=== PATIENT | female | born 1970 | race Caucasian/White ===

== ENCOUNTER 2019-01-01 08:56 | Emergency (ER) | payer BC ==
--- NOTE | 2019-01-01 09:39 | EDM.PDOC ---
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 Patient has a past medical history of diabetes mellitus and hypertension. She reports that she has been having on and off yeast infections since starting new diabetic medication in July. Patient reports that she has been treated twice for a yeast infection over the past couple of months. She reports doing a online telemedicine consultation yesterday and was given a dose of Diflucan, however, feels that her symptoms have worsened today. Patient reports that she has not been sexually active lately because of the ongoing yeast infections, however, does only have one partner. Patient reports having an IUD contraceptive device. Review of systems: As per history of present illness and below otherwise all systems reviewed and negative. Past medical history: As per history of present illness and as reviewed below otherwise noncontributory. Surgical history: As per history of present illness and as reviewed below otherwise noncontributory. Social history: No reported history of drug or alcohol abuse. Family history: As per history of present illness and as reviewed below otherwise noncontributory. Physical exam: HEENT: Atraumatic, normocephalic, pupils reactive, negative for conjunctival pallor or scleral icterus, mucous membranes moist, throat clear, neck supple, nontender, trachea midline. Lungs: Clear to auscultation, breath sounds equal bilaterally. Heart: S1S2, regular Abdomen: Soft, nondistended, nontender, normal bowel sounds. Pelvis: Stable nontender. Genitourinary: whitish plaques and white discharge on external genitalia. thick whitish discharge around cervix. Rectal: Deferred. Extremities: Atraumatic. Neurovascular unremarkable. Neuro: Awake, alert, oriented. Cranial nerves II through XII unremarkable. Exam nonfocal. Diagnostics: UA, Trichomonas gonorrhea georgiana DNA probe, GC chlamydia swab, Accu-Chek Therapeutics: Regular Insulin 10 units. Impression: 1. Urinary tract infection. 2. Vulvovaginal candidiasis. 3. Type 2 diabetes mellitus, uncontrolled. Plan: Prescription for Cefdinir provided. Counselled patient on the importance of controlling her diabetes, glucose management and taking her medications as prescribed. Recommended follow-up with her primary care provider in 2-4 days as she is returning to [place] tomorrow. For vulvovaginal candidiasis, patient may require a second dose of Diflucan after 72 hours and this was discussed with the patient. Definitive disposition and diagnosis as appropriate pending reevaluation and review of above. Vaginal Pain Score (Numeric/FACES): 4 - Related Data Allergies Allergy/AdvReac Type Severity Reaction Status Date / Time No Known Allergies Allergy Verified 01/01/19 09:16 Home Meds: Home Meds Cefdinir [Omnicef] 300 mg PO Q12H 7 Days #14 cap 01/01/19 [Rx] Empagliflozin [Jardiance] 10 mg PO DAILY 01/01/19 [History] Venlafaxine [Effexor] 75 mg PO DAILY 01/01/19 [History] glipiZIDE [Glucotrol XL] 2.5 mg PO DAILY 01/01/19 [History] hydroCHLOROthiazide [Hydrochlorothiazide] 12.5 mg PO DAILY 01/01/19 [History] metFORMIN [Glucophage XR] 1,000 mg PO BIDMEALS 01/01/19 [History] Past Medical History Cardiovascular History: Reports: Hypertension Psychiatric History: Reports: Anxiety Endocrine/Metabolic History: Reports: Diabetes, Type II - Infectious Disease History Infectious Disease History: Reports: None Social & Family History - Family History Family Medical History: Noncontributory - Tobacco Use Smoking Status *Q: Never Smoker Second Hand Smoke Exposure: No - Caffeine Use Caffeine Use: Reports: Coffee - Recreational Drug Use Recreational Drug Use: No ED ROS GENERAL - Review of Systems Review Of Systems: ROS reveals no pertinent complaints other than HPI. ED EXAM, RENAL/ - Physical Exam Exam: See Below Course - Vital Signs Last Recorded V/S: Last Vital Signs Temp 96.2 F 01/01/19 09:18 Pulse 110 H 01/01/19 09:18 Resp 18 01/01/19 09:18 BP 151/96 H 01/01/19 09:18 Pulse Ox 95 01/01/19 09:18 - Orders/Labs/Meds Orders: Active Orders 24 hr Category Date Time Status Accu Check [Blood Glucose Check, Bedside] [RC] ONETIME Care 01/01/19 09:32 Active CHLAMYDIA AND GONORRHEA BY [facility] Stat Lab 01/01/19 09:41 Received Labs: Laboratory Tests 01/01/19 01/01/19 01/01/19 Range/Units 09:43 10:16 10:47 ABG pH 7.424 (7.35-7.45) ABG pCO2 39 (35-45) mmHG ABG pO2 83 (75-100) mmHG ABG HCO3 26 (22-26) mEq/L ABG Total CO2 22.7 ABG Base Excess 1.1 (-2.0-2.0) POC Glucose 380 H (60-110) mg/dL Urine Color Urine Appearance Urine pH (5.0-8.0) Ur Specific [place] (1.001-1.035) Urine Protein (NEGATIVE) mg/dL Urine Glucose (UA) (NEGATIVE) mg/dL Urine Ketones (NEGATIVE) mg/dL Urine Occult Blood (NEGATIVE) Urine Nitrite (NEGATIVE) Urine Bilirubin (NEGATIVE) Urine Urobilinogen (<2.0) EU/dL Ur Leukocyte Esterase (NEGATIVE) Urine RBC (0-2/HPF) Urine WBC (0-5/HPF) Ur Epithelial Cells (NONE-FEW) Urine Bacteria (NEGATIVE) Urine HCG, Qual (NEGATIVE) Georgiana species DNA NEGATIVE (NEGATIVE) Gardnerella DNA Probe NEGATIVE (NEGATIVE) Trichomonas DNA Probe NEGATIVE (NEGATIVE) 01/01/19 01/01/19 Range/Units 10:49 10:49 ABG pH (7.35-7.45) ABG pCO2 (35-45) mmHG ABG pO2 (75-100) mmHG ABG HCO3 (22-26) mEq/L ABG Total CO2 ABG Base Excess (-2.0-2.0) POC Glucose (60-110) mg/dL Urine Color YELLOW Urine Appearance SLT CLOUDY Urine pH 6.5 (5.0-8.0) Ur Specific [place] <= 1.005 (1.001-1.035) Urine Protein NEGATIVE (NEGATIVE) mg/dL Urine Glucose (UA) >=1000 (NEGATIVE) mg/dL Urine Ketones NEGATIVE (NEGATIVE) mg/dL Urine Occult Blood SMALL H (NEGATIVE) Urine Nitrite NEGATIVE (NEGATIVE) Urine Bilirubin NEGATIVE (NEGATIVE) Urine Urobilinogen 0.2 (<2.0) EU/dL Ur Leukocyte Esterase NEGATIVE (NEGATIVE) Urine RBC 3-5 (0-2/HPF) Urine WBC 5-8 (0-5/HPF) Ur Epithelial Cells MODERATE (NONE-FEW) Urine Bacteria FEW (NEGATIVE) Urine HCG, Qual NEGATIVE (NEGATIVE) Georgiana species DNA (NEGATIVE) Gardnerella DNA Probe (NEGATIVE) Trichomonas DNA Probe (NEGATIVE) Meds: Medications Discontinued Medications Generic Name Dose Route Start Last Admin Trade Name Freq PRN Reason Stop Dose Admin Insulin Human Regular 10 unit 01/01/19 09:52 01/01/19 10:06 Novolin R SUBCUT 01/01/19 09:53 10 units ONETIME ONE Administration Protocol Departure - Departure Time of Disposition: 11:59 Disposition: Home, Self-Care 01 Clinical Impression: Candidal vulvovaginitis, UTI (urinary tract infection) - Discharge Information *PRESCRIPTION DRUG MONITORING PROGRAM REVIEWED*: Not Applicable *COPY OF PRESCRIPTION DRUG MONITORING REPORT IN PATIENT BROOKE: Not Applicable Prescriptions: Cefdinir [Omnicef] 300 mg PO Q12H 7 Days #14 cap Instructions: Vaginal Yeast Infection, Adult, Urinary Tract Infection, Adult, [id number] Referrals: PCP,Not In Area [Primary Care Provider] - Forms: ED Department Discharge Additional Instructions: The following information is given to patients seen in the emergency department who are being discharged to home. This information is to outline your options for follow-up care. We provide all patients seen in our emergency department with a follow-up referral. The need for follow-up, as well as the timing and circumstances, are variable depending upon the specifics of your emergency department visit. If you don't have a primary care physician on staff, we will provide you with a referral. We always advise you to contact your personal physician following an emergency department visit to inform them of the circumstance of the visit and for follow-up with them and/or the need for any referrals to a consulting specialist. The emergency department will also refer you to a specialist when appropriate. This referral assures that you have the opportunity for follow-up care with a specialist. All of these measure are taken in an effort to provide you with optimal care, which includes your follow-up. Under all circumstances we always encourage you to contact your private physician who remains a resource for coordinating your care. When calling for follow-up care, please make the office aware that this follow-up is from your recent emergency room visit. If for any reason you are refused follow-up, please contact the [facility] Department at and asked to speak to the emergency department charge nurse. - My Orders Last 24 Hours: My Active Orders 01/01/19 09:32 Accu Check [Blood Glucose Check, Bedside] [RC] ONETIME 01/01/19 09:41 CHLAMYDIA AND GONORRHEA BY [facility] Stat - Assessment/Plan Last 24 Hours: My Active Orders 01/01/19 09:32 Accu Check [Blood Glucose Check, Bedside] [RC] ONETIME 01/01/19 09:41 CHLAMYDIA AND GONORRHEA BY TMA Stat
[2019-01-01] MEDS ORDERED: Insulin Regular, Human 100 Units/ML 10 ML Vial SUBCUT ONE (09:52)
== END 2019-01-01 10:00 | disposition home or self-care (01) ==
LOC: MW.ED 08:56
DX: B37.3 Candidiasis of vulva and vagina (principal); N39.0 Urinary tract infection, site not specified; E11.9 Type 2 diabetes mellitus without complications; I10 Essential (primary) hypertension; F41.9 Anxiety disorder, unspecified; Z79.84 Long term (current) use of oral hypoglycemic drugs; Z79.899 Other long term (current) drug therapy
CPT/HCPCS: 36600; 81001; 81025; 82803; 82962; 87480; 87491; 87510; 87591; 87660; 99283; J1815